=== PATIENT | male | born 1955 | race Caucasian/White ===

== ENCOUNTER → 2016-08-28 | Outpatient (CLI) | payer BC ==
[~2016-08-28] MED LIST: OMEPRAZOLE PO; OXYCODONE PO; SUCR1TAB PO
== END | disposition home or self-care (01) ==
LOC: STAR 12:41
PROVIDERS: ATTEND Surgery
DX: Z01.810 Encounter for preprocedural cardiovascular examination (principal)
CPT/HCPCS: 93005

== ENCOUNTER 2016-09-05 06:18 | Day surgery (SDC) | payer BC ==
[2016-08-28 13:14] VITALS: BP 150/88
[~2016-09-05] VITALS: Ht 182.9 cm; Wt 81.0 kg
[2016-09-05] MEDS ORDERED: BUPIVACAINE/PF-EPI 0.25% 1:200K ONE (07:01)
[2016-09-05] MEDS ORDERED: LACTATED RINGERS 1,000 ML IV SCH (07:17)
[2016-09-05] MEDS ORDERED: OXYC1TAB7 PO (07:21)
[2016-09-05] MEDS ORDERED: OMEP-110 PO (07:21)
[2016-09-05] MEDS ORDERED: LIDOCAINE 1%, 2ML SQ PRN (07:30)
[2016-09-05] MEDS ORDERED: MIDAZOLAM 1 MG/ML, 2ML ONE ×2 (08:07→10:39)
[2016-09-05] MEDS ORDERED: FENTANYL PF 250 MCG/5ML ONE (08:07)
[2016-09-05] MEDS ORDERED: SUCCINYLCHOLINE 20 MG/ML, 10ML ONE (08:53)
[2016-09-05] MEDS ORDERED: DEXAMETHASONE 4 MG/ML, 1ML ONE (08:53)
[2016-09-05] MEDS ORDERED: ROCURONIUM 10 MG/ML ONE (08:53)
[2016-09-05] MEDS ORDERED: CEFAZOLIN 1,000 MG ONE (08:53)
[2016-09-05] MEDS ORDERED: NEOSTIGMINE 1 MG/ML, 10ML ONE (08:53)
[2016-09-05] MEDS ORDERED: ONDANSETRON 2MG/ML, 2ML ONE (08:53)
[2016-09-05] MEDS ORDERED: PROPOFOL 10 MG/ML, 20ML ONE (08:53)
[2016-09-05] MEDS ORDERED: GLYCOPYRROLATE 0.2MG/1ML ONE (08:53)
[2016-09-05] MEDS ORDERED: FENTANYL PF 100 MCG/2ML ONE (10:14)
[2016-09-05] MEDS ORDERED: HYDROmorphone 2 MG/ML, 1ML ONE (10:14)
[2016-09-05] MEDS ORDERED: OXYcodone 5 MG/5 ML ORAL.SOL UDC ONE (10:15)
[2016-09-05] MEDS: FENTANYL PF 100 MCG/2ML IV PRN ×2 (10:23→10:30)
[2016-09-05] MEDS ORDERED: EPHEDRINE 50 MG/ML, 1ML IVPush PRN (10:30)
[2016-09-05] MEDS ORDERED: hydrALAzine 20 MG/ML, 1ML IV PRN (10:30)
[2016-09-05] MEDS ORDERED: METOPROLOL 1 MG/ML, 5ML IV PRN (10:30)
[2016-09-05] MEDS ORDERED: OXYcodone 5 MG/5 ML ORAL.SOL UDC PO PRN (10:30)
[2016-09-05] MEDS ORDERED: MIDAZOLAM 1 MG/ML, 2ML IV PRN (10:30)
[2016-09-05] MEDS ORDERED: MEPERIDINE/PF 25MG/0.5ML IVPush PRN (10:30)
[2016-09-05] MEDS ORDERED: PROMETHAZINE 25 MG/ML, 1ML IV PRN (10:30)
[2016-09-05] MEDS ORDERED: ALBUTEROL SULFATE 2.5 MG/3 ML NPPB PRN (10:30)
[2016-09-05] MEDS ORDERED: ONDANSETRON 2MG/ML, 2ML IVPush PRN (10:30)
[2016-09-05] MEDS ORDERED: LABETALOL 5MG/ML, 20ML IV PRN (10:30)
[2016-09-05] MEDS ORDERED: ACETAMINOPHEN 325 MG TABLET PO PRN (10:30)
[2016-09-05] MEDS: HYDROmorphone 1 MG/ML, 1ML IV PRN ×2 (10:45→10:50)
== END 2016-09-05 13:10 | disposition home or self-care (01) ==
LOC: OUT 06:18
PROVIDERS: ATTEND Surgery
DX: K81.1 Chronic cholecystitis (principal); K21.9 Gastro-esophageal reflux disease without esophagitis; K74.60 Unspecified cirrhosis of liver; Z89.512 Acquired absence of left leg below knee; Z87.891 Personal history of nicotine dependence; Z88.6 Allergy status to analgesic agent
CPT/HCPCS: 47562; 88304; C1760; J0330; J0690; J1100; J1170; J2250; J2405; J2704; J2710; J3010; J3490; J7120; 88341; 88342; G0461